=== PATIENT | female | born 1955 | race Caucasian/White ===

== ENCOUNTER 2021-08-09 03:58 | Emergency (ER) | payer OTHER ==
[~2021-08-09] VITALS: Ht 162.6 cm; Wt 47.6 kg
[2021-08-09] MEDS ORDERED: NOHOMEMEDICATIONS (04:11)
[2021-08-09 06:12] LABS: HEMATOCRIT 22.9 % (37.0-47.0); HEMOGLOBIN 7.1 gm/dL (12.0-15.0); MCH 21.9 pg (26.0-34.0); MCHC 30.8 g/dL (28.0-37.0); MCV 71.1 fL (80.0-100.0); PLATELET COUNT 430 thou/uL (150-400); RBC 3.23 mil/uL (4.20-5.00); RDW 23.9 % (10.5-14.5); WBC 39.6 thou/uL (4.0-11.0)
[2021-08-09 06:23] LABS: CALCIUM 9.4 mg/dL (8.5-10.1); CREATININE 1.8 mg/dL (0.6-1.0); POTASSIUM 5.1 mmol/L (3.5-5.1)
[2021-08-09 06:28] LABS: ALBUMIN 1.4 g/dL (3.4-5.0); TOTAL BILIRUBIN 0.5 mg/dL (0.2-1.0); TOTAL PROTEIN 6.2 g/dL (6.4-8.2)
[2021-08-09 08:29] VITALS: BP 112/69
[2021-08-09 08:33] LABS: ANISOCYTOSIS 3+; HYPOCHROMASIA 2+; MICROCYTES 1+
[2021-08-09 08:34] LABS: POIKILOCYTOSIS 1+
== END 2021-08-09 08:29 | disposition short-term general hospital (02) ==
LOC: ER 03:58
PROVIDERS: Emergency Medicine
DX: M72.6 Necrotizing fasciitis (principal); Z20.822 Contact with and (suspected) exposure to COVID-19; Z98.51 Tubal ligation status